=== PATIENT | female | born 1980 | race Caucasian/White ===

== ENCOUNTER 2020-06-03 10:56 | Day surgery (SDC) | payer OTHER ==
[2020-05-31 14:30] VITALS: BMI 22.5
[2020-06-03] MEDS ORDERED: SUCCINYLCHOLINE CHLORIDE 200 MG/10 ML SYRINGE ONE (13:54)
[2020-06-03] MEDS ORDERED: KETAMINE HCL 500 MG/10 ML VIAL ONE (13:54)
[2020-06-03] MEDS ORDERED: PROPOFOL 20 ML ONE (13:54)
[2020-06-03 15:51] VITALS: BP 105/65; PULSE 69; TEMP 97.9
== END 2020-06-03 15:15 | disposition home or self-care (01) ==
LOC: FECT 10:56
PROVIDERS: ATTEND Psychiatry & Neurology Psychiatry
PROC: GZB4ZZZ Other Electroconvulsive Therapy (ICD-10-PCS; principal; 2020-06-03 12:00)
DX: F32.9 Major depressive disorder, single episode, unspecified (principal)
CPT/HCPCS: 84703; 90870; 94760; C9803; U0003

== ENCOUNTER 2020-06-07 07:55 | Day surgery (SDC) | payer OTHER ==
[2020-06-06 12:12] VITALS: BMI 22.5
[2020-06-07] MEDS ORDERED: KETAMINE HCL 500 MG/10 ML VIAL ONE (08:49)
[2020-06-07] MEDS ORDERED: MIDAZOLAM HCL 2 MG/2 ML SINGLE DOSE VIAL ONE ×2 (09:16→09:29)
[2020-06-07] MEDS ORDERED: MIDAZOLAM HCL 2 MG/2 ML SINGLE DOSE VIAL IVPUSH ONE (09:31)
[2020-06-07 10:06] VITALS: PULSE 72
[2020-06-07 10:28] VITALS: BP 104/62; TEMP 98.2
== END 2020-06-07 10:29 | disposition home or self-care (01) ==
LOC: FECT 07:55
PROVIDERS: ATTEND Psychiatry & Neurology Psychiatry
PROC: GZB4ZZZ Other Electroconvulsive Therapy (ICD-10-PCS; principal; 2020-06-07 09:30)
DX: F32.9 Major depressive disorder, single episode, unspecified (principal)
CPT/HCPCS: 84703; 90870; 94760; C9803; U0003

== ENCOUNTER 2020-06-10 08:28 | Day surgery (SDC) | payer OTHER ==
[2020-06-07 16:43] VITALS: BMI 22.5
[2020-06-10] MEDS ORDERED: KETAMINE HCL 500 MG/10 ML VIAL ONE (10:56)
[2020-06-10] MEDS ORDERED: MIDAZOLAM HCL 2 MG/2 ML SINGLE DOSE VIAL ONE (10:58)
[2020-06-10 11:50] VITALS: TEMP 98.3
[2020-06-10 12:37] VITALS: BP 102/62; PULSE 64
== END 2020-06-10 12:35 | disposition home or self-care (01) ==
LOC: FECT 08:28
PROVIDERS: ATTEND Psychiatry & Neurology Psychiatry
PROC: GZB4ZZZ Other Electroconvulsive Therapy (ICD-10-PCS; principal; 2020-06-10 10:30)
DX: F33.2 Major depressive disorder, recurrent severe without psychotic features (principal)
CPT/HCPCS: 81025; 90870; 94760; C9803; U0003

== ENCOUNTER 2020-06-13 07:36 | Day surgery (SDC) | payer OTHER ==
[2020-06-07 15:28] VITALS: BMI 22.5
[2020-06-13] MEDS ORDERED: MIDAZOLAM HCL 2 MG/2 ML SINGLE DOSE VIAL ONE ×2 (08:33→09:14)
[2020-06-13] MEDS ORDERED: KETAMINE HCL 500 MG/10 ML VIAL ONE (08:50)
[2020-06-13] MEDS ORDERED: PROPOFOL 20 ML ONE (08:50)
[2020-06-13 09:49] VITALS: TEMP 98.5
[2020-06-13 10:16] VITALS: BP 120/74; PULSE 72
[2020-06-13] MEDS ORDERED: ONDANSETRON 4 MG/2 ML VIAL IVPUSH PRN (10:43)
[2020-06-13] MEDS ORDERED: MIDAZOLAM HCL 2 MG/2 ML SINGLE DOSE VIAL IVPUSH ONE (10:44)
[2020-06-13] MEDS ORDERED: LACTATED RINGERS SOLUTION 1,000 ML IV SCH (10:45)
== END 2020-06-13 10:18 | disposition home or self-care (01) ==
LOC: FECT 07:36
PROVIDERS: ATTEND Psychiatry & Neurology Psychiatry
PROC: GZB4ZZZ Other Electroconvulsive Therapy (ICD-10-PCS; principal; 2020-06-13 09:00)
DX: F32.9 Major depressive disorder, single episode, unspecified (principal)
CPT/HCPCS: 81025; 90870; 94760; C9803; U0003